=== PATIENT | female | born 1955 | race Caucasian/White ===

== ENCOUNTER → 2016-06-16 | Outpatient (CLI) | payer BC ==
[~2016-06-16] MED LIST: ASPIRIN 81M81 MG/TA2 PO; B COMPLEX #11 TAB; B-121000 MCG PO; CALCIUM 600/VIT1 CAP PO; CIPRO; CLIMARA. TD; LOPRESSOR 225 MG/TAB PO; LORTAB 5/500 501 TAB PO; MAGNESIUM250 M1 PO; MULTIPLE VITAMI1 CAP PO; NORETHINDRONE; SYNTHROID 0.10.15 MG PO; TIROSINT100 MC1 PO; ZANTAC 150MG T150 MG PO; ZYRTEC 10MG10 MG PO
== END ==
LOC: MC.RAD 08:17
DX: Z12.31 Encounter for screening mammogram for malignant neoplasm of breast (principal)

== ENCOUNTER → 2016-09-30 | Outpatient (CLI) | payer BC | LOC: COL.VAS 11:52 | DX: I65.01 Occlusion and stenosis of right vertebral artery (principal); I65.23 Occlusion and stenosis of bilateral carotid arteries; I34.0 Nonrheumatic mitral (valve) insufficiency; I27.89 Other specified pulmonary heart diseases; R09.89 Other specified symptoms and signs involving the circulatory and respiratory systems | CPT/HCPCS: A9585 ==

== ENCOUNTER → 2016-10-08 | Outpatient (CLI) | payer BC | LOC: COL.RAD 10:13 | DX: I65.01 Occlusion and stenosis of right vertebral artery (principal); R55 Syncope and collapse; R09.89 Other specified symptoms and signs involving the circulatory and respiratory systems | CPT/HCPCS: Q9967 ==

== ENCOUNTER → 2016-10-15 | Outpatient (CLI) | payer BC | LOC: COL.CARD 10:00 | DX: I10 Essential (primary) hypertension (principal); R55 Syncope and collapse ==

== ENCOUNTER 2016-12-29 12:13 | Day surgery (SDC) | payer BC ==
[2008-05-30 11:50] VITALS: BP 122/42
[~2016-12-29] VITALS: Ht 160.1 cm; Wt 77.0 kg
[2016-12-29] VITALS (9 sets, daily range): BP systolic 130–154; BP diastolic 70–93; PULSE 64–75; TEMP 97.1
[~2016-12-29 12:13] MED LIST changes: -B COMPLEX #11 TAB; -B-121000 MCG PO; -CALCIUM 600/VIT1 CAP PO; -LOPRESSOR 225 MG/TAB PO; -MAGNESIUM250 M1 PO; -MULTIPLE VITAMI1 CAP PO; -TIROSINT100 MC1 PO; -ZANTAC 150MG T150 MG PO; -ZYRTEC 10MG10 MG PO
[2016-12-29] MEDS ORDERED: TIROSINT100 MC1 PO (12:48)
[2016-12-29] MEDS ORDERED: LOPRESSOR 225 MG/TAB PO (12:49)
[2016-12-29] MEDS ORDERED: ZYRTEC 10MG10 MG PO (12:49)
[2016-12-29] MEDS ORDERED: B-121000 MCG PO (12:50)
[2016-12-29] MEDS ORDERED: B COMPLEX #11 TAB (12:51)
[2016-12-29] MEDS ORDERED: MULTIPLE VITAMI1 CAP PO (12:52)
[2016-12-29] MEDS ORDERED: CALCIUM 600/VIT1 CAP PO (12:53)
[2016-12-29] MEDS ORDERED: ZANTAC 150MG T150 MG PO (12:53)
[2016-12-29 12:54] LABS: HEMATOCRIT 44.8 % (37.0-47.0); HEMOGLOBIN 14.7 g/dl (12.5-16.0); MEAN CELL VOLUME 88 fl (80.0-100.0); MEAN CORPUSCULAR HEMOGLOBIN 29 pg (27.0-31.0); MEAN CORPUSCULAR HGB CONC 33 g/dl (33.0-37.0); MEAN PLATELET VOLUME 11.3 fl (7.4-10.4); PLATELET COUNT 211 K/mm3 (130-400); REDCELL DISTRIBUTION WIDTH-CV 13.2 % (11.5-14.5); WHITE BLOOD COUNT 7.6 K/mm3 (4.8-10.8)
[2016-12-29] MEDS ORDERED: MAGNESIUM250 M1 PO (12:54)
[2016-12-29 12:56] LABS: PROTHROMBIN TIME 10.8 SECONDS (9.7-12.8)
[2016-12-29 13:01] LABS: CALCIUM 10.2 mg/dL (8.4-10.2); CREATININE, serum 0.65 mg/dL (0.52-1.25); POTASSIUM 4.2 mmol/L (3.4-5.0)
== END 2016-12-29 17:40 | disposition home or self-care (01) ==
LOC: COL.CAR 12:13
PROVIDERS: Internal Medicine Interventional Cardiology
DX: R94.39 Abnormal result of other cardiovascular function study (principal); R55 Syncope and collapse; I10 Essential (primary) hypertension; E78.5 Hyperlipidemia, unspecified; E03.9 Hypothyroidism, unspecified; Z82.49 Family history of ischemic heart disease and other diseases of the circulatory system
CPT/HCPCS: C1760; C1894; J2250; J3010; Q9967

== ENCOUNTER → 2016-12-31 | Outpatient (CLI) | payer BC ==
[~2016-12-31] MED LIST changes: +B COMPLEX #11 TAB; +B-121000 MCG PO; +CALCIUM 600/VIT1 CAP PO; +LOPRESSOR 225 MG/TAB PO; +MAGNESIUM250 M1 PO; +MULTIPLE VITAMI1 CAP PO; +TIROSINT100 MC1 PO; +ZANTAC 150MG T150 MG PO; +ZYRTEC 10MG10 MG PO
== END ==
LOC: COL.RAD 14:01
DX: I72.4 Aneurysm of artery of lower extremity (principal); I82.890 Acute embolism and thrombosis of other specified veins

== ENCOUNTER → 2017-06-24 | Outpatient (CLI) | payer BC | LOC: MC.RAD 09:35 | DX: Z12.31 Encounter for screening mammogram for malignant neoplasm of breast (principal) ==